=== PATIENT | female | born 1995 | race Caucasian/White ===

== ENCOUNTER 2017-03-16 22:16 | Emergency (ER) | payer OTHER ==
--- NOTE | ~2017-03-16 | CT2 ---
[facility] A Service of [facility] RADIOLOGY TEXT RESULTS PATIENT: FELIZ SUMNER LOCATION: SED : [birth year] UNIT #: [id number] AGE: [address]: Ari Wagner MD SEX: F ORDER DR: [id number] [address] [address] [id number] E MR#: [id number] Acc #: [id number] NAME: FELIZ SUMNER : 1995 SEX: F STUDY DATE/TIME: 03/16/2017 23:11 UNIT: SED ROOM: STUDY DESCRIPTION: CT Abd and Pelv W Cont Attending Physician: Ari Wagner M.D. Ordering Physician: Ari Wagner M.D. Primary Care Physician: Primary Care Physician No MEDICAL IMAGING REPORT This report is preliminary unless electronic signature is present. EXAM CT abdomen and pelvis with contrast 03/16/2017 HISTORY 21-year-old female in the ED complaining of new onset left lower quadrant abdomen pain with vomiting. Symptoms began earlier today. TECHNIQUE CT examination of the abdomen and pelvis was performed with oral and IV contrast. At the time of imaging, GI contrast had not reached the distal small bowel or colon. This CT exam was performed with one or more of the following radiation dose reduction techniques: Automatic exposure control, adjustment of mA and/or kV according to patient size, and iterative reconstruction. FINDINGS ABDOMEN FINDINGS: Liver, pancreas, spleen and kidneys are normal in appearance. Nondistended gallbladder. No bile duct dilatation. Small bowel and colon are normal in caliber and appearance. The appendix is normal. Normal-caliber abdominal aorta. PELVIS FINDINGS: Uterus, both ovaries, bladder and rectum are normal in size and appearance. No mass, adenopathy or fluid collection is seen within the abdomen or pelvis. Limited lung base images are negative. IMPRESSION Negative CT examination of the abdomen and pelvis. Dictated by... Brenden Claudio M.D. [facility] A Service of [facility] RADIOLOGY TEXT RESULTS PATIENT: FELIZ SUMNER LOCATION: SED : [birth year] UNIT #: [id number] AGE: [address]: Ari Wagner MD SEX: F ORDER DR: THIS IS AN ELECTRONICALLY VERIFIED REPORT Brenden Claudio M.D. at 03/17/2017 6:01 AM HARRIETT/meredith TD: 03/16/2017 23:58 JOB #: [id number] MEDICAL IMAGING REPORT Page 1 of 1
[~2017-03-16 22:16] MED LIST: NO MEDICATIONS
[2017-03-16 22:30] LABS: URINE SOURCE CLEAN CATCH
[2017-03-16 22:31] LABS: BASOPHIL# 0.1 X10e3 (0-0.3); BASOPHIL% 0.6 % (0-2.5); EOSINOPHIL# 0.1 X10e3 (0-0.7); EOSINOPHIL% 0.8 % (0.0-7.0); HEMOGLOBIN 13.6 gm/dL (12.0-16.0); LYMPHOCYTE# 2.2 X10e3 (1.0-3.5); MEAN CELL VOLUME 87.5 FL (83-96); MEAN CORPUSCULAR HEMOGLOBIN 29.7 PG (28-34); MEAN PLATELET VOLUME 7.2 FL (6.5-11.5); MONOCYTE# 0.9 X10e3 (0-1.0); MONOCYTE% 9.4 % (3.0-12.0); NEUTROPHIL# 6.4 X10e3 (1.5-7.1); NEUTROPHIL% 66.2 % (40-75); PLATELET COUNT 245 X10e3 (140-420); RED BLOOD COUNT 4.57 X10e (3.90-5.30); RED CELL DISTRIBUTION WIDTH 13.6 % (11.0-15.5); WHITE BLOOD COUNT 9.7 X10e3 (4.0-10.5)
[2017-03-16 22:33] LABS: DIFF IND NO
[2017-03-16 22:36] LABS: URINE APPEARANCE CLEAR; URINE BILIRUBIN NEG (NEG); URINE BLOOD NEG (NEG); URINE COLOR YELLOW; URINE GLUCOSE NEG (NORM); URINE KETONE NEG (NEG); URINE LEUKOCYTE ESTERASE NEG (NEG); URINE NITRATE NEG (NEG); URINE PH 6.5 (5-8); URINE PROTEIN NEG (NEG); URINE UROBILINOGEN 0.2 MG/DL (NORM)
[2017-03-16 22:37] LABS: MICRO INDICATED? NO
[2017-03-16 22:47] LABS: BILIRUBIN,TOTAL 0.1 mg/dL (0.2-2.0); BUN/CREATININE RATIO 15.71; CALCIUM SERUM 9.4 mg/dL (8.4-10.2); CREATININE SERUM 0.7 mg/dL (0.6-1.4); GLOM FILT RATE Estimated 124.7 mL/min (>60); POTASSIUM 3.7 mmol/L (3.5-5.1); PROTEIN TOTAL SERUM 7.8 g/dL (6.0-8.3)
== END 2017-03-17 00:32 | disposition home or self-care (01) ==
LOC: SED 22:16
DX: K52.9 Noninfective gastroenteritis and colitis, unspecified (principal)
CPT/HCPCS: 36415; 74177; 80053; 81003; 82150; 83690; 84703; 85025; 96361; 96374; 96375; 99284; J2270; J2405; Q9967

== ENCOUNTER 2017-04-25 12:21 | Emergency (ER) | payer OTHER ==
--- NOTE | ~2017-04-25 | EKG ---
PATIENT: FELIZ SUMNER UNIT #: [id number] Ventricular Rate: 89 BPM Atrial Rate: 89 BPM P-R Interval: 162 ms QRS Duration: 80 ms Q-T Interval: 370 ms QTC Calculation(Bezet): 450 ms P [place]: 31 degrees Calculated R [place]: 50 degrees Calculated T [place]: 2 degrees Diagnosis Line: Normal sinus rhythm Diagnosis Line: Normal ECG Diagnosis Line: No previous ECGs available Diagnosis Line: Confirmed by ELYSIA PITTMAN MD ([id number]) on Diagnosis Line: 04/25/2017 10:21:03 PM INTERPRETING MD: SORIN
--- NOTE | ~2017-04-25 | CR72 ---
[facility] A Service of [facility] RADIOLOGY TEXT RESULTS PATIENT: FELIZ SUMNER LOCATION: [facility] : [birth year] UNIT #: [id number] AGE: [address]: Alok Cerrato MD SEX: F ORDER DR: [id number] [facility] [address] [place], [place] [address] [id number] E MR#: [id number] Acc #: [id number] NAME: FELIZ SUMNER. : 1995 SEX: F STUDY DATE/TIME: 04/25/2017 UNIT: [facility] ROOM: STUDY DESCRIPTION: CR Chest Single View Portable Attending Physician: Alok Cerrato M.D. Ordering Physician: Alok Cerrato M.D. MEDICAL IMAGING REPORT This report is preliminary unless electronic signature is present EXAM Chest portable 04/25/2017, 1339 hours HISTORY 21 year old who fainted at work today with abnormal blood gas. COMPARISON None. FINDINGS Portable upright chest demonstrates normal cardiac, mediastinal and hilar contours. There a few scattered calcified granulomata in the lungs. The lungs are clear and there are no effusions. IMPRESSION Benign calcified granulomatous changes. Otherwise, normal portable chest. Dictated by... Katherine Lobo M.D. THIS IS AN ELECTRONICALLY VERIFIED REPORT Katherine Lobo M.D. at 04/26/2017 9:32 AM GINA/nolberto TD: 04/25/2017 19:18 JOB #: [id number] MEDICAL IMAGING REPORT Page 1 of 1 COPY
[2017-04-25 13:49] LABS: BASOPHIL% 0.4 % (0-2.5); EOSINOPHIL% 0.3 % (0.0-7.0); HEMATOCRIT 41.8 % (35.0-45.0); LYMPHOCYTE# 1.3 X10e3 (1.0-3.5); LYMPHOCYTE% 19.3 % (17.0-45.0); MEAN CELL VOLUME 87.8 FL (83-96); MEAN CORPUSCULAR HEMOGLOBIN 29.4 PG (28-34); MEAN CORPUSCULAR HGB CONC 33.5 g/dL (30-36); MEAN PLATELET VOLUME 7.3 FL (6.5-11.5); MONOCYTE# 0.6 X10e3 (0-1.0); MONOCYTE% 8.3 % (3.0-12.0); NEUTROPHIL# 4.9 X10e3 (1.5-7.1); NEUTROPHIL% 71.7 % (40-75); PLATELET COUNT 242 X10e3 (140-420); RED BLOOD COUNT 4.76 X10e (3.90-5.30); RED CELL DISTRIBUTION WIDTH 13.2 % (11.0-15.5); WHITE BLOOD COUNT 6.9 X10e3 (4.0-10.5)
[2017-04-25 13:51] LABS: DIFF IND NO
[2017-04-25 14:12] LABS: BUN/CREATININE RATIO 13.33; CREATININE SERUM 0.6 mg/dL (0.6-1.4); GLOM FILT RATE Estimated 131.2 mL/min (>60); POTASSIUM 3.6 mmol/L (3.5-5.1)
== END 2017-04-25 14:40 | disposition home or self-care (01) ==
LOC: CED 12:21
PROVIDERS: Emergency Medicine
DX: R55 Syncope and collapse (principal)
CPT/HCPCS: 36415; 71010; 80048; 84703; 85025; 93005; 99283; 99284

== ENCOUNTER 2017-07-26 06:10 | Emergency (ER) | payer OTHER ==
[2017-07-26 07:31] LABS: URINE SOURCE CLEAN CATCH
[2017-07-26 07:36] LABS: BASOPHIL% 0.9 % (0-2.5); EOSINOPHIL# 0.1 X10e3 (0-0.7); EOSINOPHIL% 1.4 % (0.0-7.0); HEMATOCRIT 38.5 % (35.0-45.0); HEMOGLOBIN 13.3 gm/dL (12.0-16.0); LYMPHOCYTE# 0.9 X10e3 (1.0-3.5); LYMPHOCYTE% 21.9 % (17.0-45.0); MEAN CELL VOLUME 88.5 FL (83-96); MEAN CORPUSCULAR HEMOGLOBIN 30.6 PG (28-34); MEAN CORPUSCULAR HGB CONC 34.6 g/dL (30-36); MEAN PLATELET VOLUME 6.7 FL (6.5-11.5); MONOCYTE# 0.5 X10e3 (0-1.0); MONOCYTE% 12.8 % (3.0-12.0); NEUTROPHIL# 2.7 X10e3 (1.5-7.1); PLATELET COUNT 213 X10e3 (140-420); RED BLOOD COUNT 4.35 X10e (3.90-5.30); RED CELL DISTRIBUTION WIDTH 13.1 % (11.0-15.5); WHITE BLOOD COUNT 4.2 X10e3 (4.0-10.5)
[2017-07-26 07:44] LABS: URINE APPEARANCE CLEAR; URINE BILIRUBIN NEG (NEG); URINE BLOOD TRACE-INTACT (NEG); URINE COLOR YELLOW; URINE GLUCOSE NEG (NORM); URINE KETONE TRACE (NEG); URINE LEUKOCYTE ESTERASE NEG (NEG); URINE NITRATE NEG (NEG); URINE PH 5.5 (5-8); URINE PROTEIN NEG (NEG); URINE SPECIFIC GRAVITY >=1.030 (1.003-1.035)
[2017-07-26 07:49] LABS: DIFF IND NO
[2017-07-26 07:50] LABS: MICRO INDICATED? YES
[2017-07-26 07:52] LABS: URINE BACTERIA 1+ (NEG); URINE RBC 0-2 /[HPF] (0-2); URINE SQUAMOUS EPITHELIAL CELL MODERATE /[HPF]
[2017-07-26 07:53] LABS: URINE MUCUS PRESENT
[2017-07-26 07:55] LABS: ALBUMIN SERUM 3.9 g/dL (3.5-5.0); BILIRUBIN, DIRECT 0.1 mg/dL (0.0-0.2); BILIRUBIN,INDIRECT 0.3 mg/dL (0.0-0.9); BILIRUBIN,TOTAL 0.4 mg/dL (0.2-2.0); CALCIUM SERUM 8.2 mg/dL (8.4-10.2); CREATININE SERUM 0.6 mg/dL (0.6-1.4); GLOM FILT RATE Estimated 130.3 mL/min (>60); POTASSIUM 3.3 mmol/L (3.5-5.1); PROTEIN TOTAL SERUM 6.8 g/dL (6.0-8.3)
== END 2017-07-26 08:29 | disposition home or self-care (01) ==
LOC: SED 06:10
PROVIDERS: Emergency Medicine; Student in an Organized Health Care Education/Training Program
DX: R11.2 Nausea with vomiting, unspecified (principal); R19.7 Diarrhea, unspecified
CPT/HCPCS: 36415; 80048; 80076; 81003; 82150; 83690; 84703; 85025; 96361; 96374; 96375; 99284; C9113; J2405